=== PATIENT | female | born 1950 | race African-American/Black ===

== ENCOUNTER → 2017-06-12 | Outpatient (CLI) | payer BC ==
[~2017-06-12] MED LIST: LOTREL 5/20 MG1 CAP PO
--- NOTE | ~2017-06-12 | CR63 ---
[facility] A Service of [facility] RADIOLOGY TEXT RESULTS PATIENT: CARMELA ORELLANA LOCATION: [facility] : 52 UNIT #: [id number] AGE: [address]: Odilia Ferrera MD SEX: F ORDER DR: [id number] [facility] [address] [place], [place] [address] [id number] O MR#: [id number] Acc #: [id number] NAME: CARMELA ORELLANA : 1950 SEX: F STUDY DATE/TIME: 06/12/2017 12:23 UNIT: [facility] ROOM: STUDY DESCRIPTION: CR Chest 2 View Attending Physician: Odilia Ferrera M.D. Referring Physician: Odilia Ferrera M.D. Ordering Physician: Odilia Ferrera M.D. Primary Care Physician: Odilia Ferrera M.D. MEDICAL IMAGING REPORT This report is preliminary unless electronic signature is present EXAM Chest, 06/12/2017; [facility]. HISTORY 67-year-old female short of air. History of COPD. COMPARISON Chest, 01/22/2015. FINDINGS Two-view chest demonstrates normal stable heart size. Hilar structures and mediastinal contours are preserved. Bilateral lungs are expanded and clear. Large body habitus noted. IMPRESSION Stable chest with no acute finding. Large body habitus. Dictated by... Lew Ward M.D. THIS IS AN ELECTRONICALLY VERIFIED REPORT Lew Ward M.D. at 06/15/2017 8:07 AM JACKELINE/lesa TD: 06/12/2017 21:13 JOB #: [id number] MEDICAL IMAGING REPORT Page 1 of 1 COPY
== END | disposition home or self-care (01) ==
LOC: CRAD 12:10
DX: J96.00 Acute respiratory failure, unspecified whether with hypoxia or hypercapnia (principal)
CPT/HCPCS: 71020